=== PATIENT | female | born 1995 | race Caucasian/White ===

== ENCOUNTER 2020-02-29 12:34 | Outpatient (REF) | payer OTHER, SELFPAY | END 2020-02-29 12:35 | disposition home or self-care (01) | LOC: HO.LAB 12:34 | PROVIDERS: Visit Provider Internal Medicine | DX: Z20.828 Contact with and (suspected) exposure to other viral communicable diseases (principal) | CPT/HCPCS: C9803; U0003 ==

== ENCOUNTER 2020-02-29 12:48 | Emergency (ER) | payer OTHER, SELFPAY ==
[2020-02-29 13:05] VITALS: BP 131/66; PULSE 83; RESP 16; TEMP 36.6; O2SAT 100; BMI 29.2
--- NOTE | 2020-02-29 13:30 | ED_ITS ---
HPI - URI/Sore Throat General Chief Complaint: Upper Respiratory Symptoms <ANTONINO Malik Last Filed: 03/01/20 12:58> Stated Complaint: SORE THROAT HEADACHE <ANTONINO Malik Last Filed: 03/01/20 12:58> Time Seen by Provider: 02/29/20 13:29 <ANTONINO Malik Last Filed: 03/01/20 12:58> History of Present Illness HPI Narrative: Patient complains of sore throat for 2 days, there is pain on swallowing but no difficulty swelling no difficulty breathing no fever no chills, no chest pain no shortness of breath no fever or chills <ANTONINO Malik Last Filed: 03/01/20 12:58> Related Data Home Medications: Previous Rx's Medication Instructions Recorded azithromycin [Zithromax Z-Live] See Rx Instructions .ROUTE 02/29/20 .COMPLEX #6 tab <ANTONINO Malik Last Filed: 03/01/20 12:58> Allergies/Adverse Reactions: Allergies Allergy/AdvReac Type Severity Reaction Status Date / Time amoxicillin [AMOXICILLIN] Allergy Unknown RASH Unverified 12/30/19 16:15 <ANTONINO Malik Last Filed: 03/01/20 12:58> Review of Systems Review of Systems: Review of systems is positive for sore throat There is no headache no fever no chills no weakness no confusion no chest pain no shortness of breath no palpitations no nausea no vomiting no diarrhea no abdominal pain no rash <ANTONINO Malik Last Filed: 03/01/20 12:58> Yes all other systems are reviewed and are negative <ANTONINO Malik Last Filed: 03/01/20 12:58> [facility] Past Medical History Source: nursing notes reviewed <ANTONINO Malik Last Filed: 03/01/20 12:58> Medical History: Medical History (Updated 03/01/20 @ 00:00 by Gerri Shepard) Migraines <ANTONNIO Malik Last Filed: 03/01/20 12:58> Social History Social History: Social History Alcohol intake: never Smoked in Last 30 Days: No Use of substances other than those prescribed or required for medical reasons: No Advance Directives: No Advance Directives Information Provided: No <ANTONINO Malik Last Filed: 03/01/20 12:58> Physical Exam Vital Signs: Vital Signs: Last Vital Signs Temp 97.9 F 02/29/20 13:05 Pulse 83 02/29/20 13:05 Resp 16 02/29/20 13:05 BP 131/66 02/29/20 13:05 Pulse Ox 100 02/29/20 13:05 Body Mass Index 29.2 <ANTONINO Malik - Last Filed: 03/01/20 12:58> Vital Signs: Last Vital Signs Temp 97.9 F 02/29/20 13:05 Pulse 83 02/29/20 13:05 Resp 16 02/29/20 13:05 BP 131/66 02/29/20 13:05 Pulse Ox 100 02/29/20 13:05 Body Mass Index 29.2 <Syed Stark MD - Last Filed: 03/01/20 13:15> Patient is A&O x3 comfortable speaking full sentences no acute distress The sinuses are not tender The pharynx has red symmetrically enlarged tonsils with scant exudate The uvula is midline, the mucous membranes are moist, the voice is normal, there is no drooling The neck had some small cervical lymphadenopathy, neck was supple Chest was clear to auscultation bilaterally with full symmetrical equal breath sounds Heart no murmur The abdomen soft nontender Extremities no edema no calf tenderness Neuro no focal deficit Skin no rash <ANTONINO Malik - Last Filed: 03/01/20 12:58> Course Course Course Narrative: Rapid strep was negative but patient has had strep throat many times before and requested an antibiotic so I gave her script for Zithromax and recommended she wait and see if the throat culture is positive <ANTONINO Malik - Last Filed: 03/01/20 12:58> I have reviewed the chart <Syed Stark MD - Last Filed: 03/01/20 13:15> Discharge Plan Discharge Clinical Impression: Pharyngitis <ANTONINO Malik - Last Filed: 03/01/20 12:58> Patient Disposition: Home, Self-Care <ANTONINO Malik - Last Filed: 03/01/20 12:58> Additional Instructions: Rapid strep was negative We will call you a follow-up throat culture is positive You wanted a prescription for antibiotics so I wrote a prescription for Zithromax and you can take it if they call you with a positive result Return any time any worse condition or concerns <ANTONINO Malik - Last Filed: 03/01/20 12:58> Prescriptions: New azithromycin [Zithromax Z-Live] 250 mg tablet See Rx Instructions .ROUTE .COMPLEX Qty: 6 RF: 0 <ANTONINO Malik - Last Filed: 03/01/20 12:58> Interventions: ED Discharge Assessment Last Done: 02/29/20 14:40 <ANTONINO Malik - Last Filed: 03/01/20 12:58> Discharge Date/Time: 02/29/20 14:40 <ANTONINO Malik - Last Filed: 03/01/20 12:58>
--- NOTE | 2020-02-29 14:17 | PC.NURSE ---
throat culture obtained and sent to lab, pt waiting for discharge
== END 2020-02-29 14:40 | disposition home or self-care (01) ==
PROVIDERS: Emergency Provider Emergency Medicine; PCP Pediatrics
DX: J02.9 Acute pharyngitis, unspecified (principal); R51.9 Headache, unspecified; Z79.899 Other long term (current) drug therapy
CPT/HCPCS: 87071; 87147; 87880; 99283; 99284

== ENCOUNTER 2022-07-28 18:36 | Emergency (ER) | payer OTHER, SELFPAY ==
--- NOTE | ~2022-07-28 | XR_ITS ---
EXAMINATION: XR WRIST, RIGHT XR HAND, RIGHT CLINICAL INFORMATION: Redness and pain COMPARISON: Left hand and wrist 10/05/2018 TECHNIQUE: PA, lateral, and oblique views of the right wrist and PA, lateral, and oblique views of the right hand FINDINGS: RIGHT WRIST: The bones and soft tissues are normal. No fracture. Alignment is anatomic. Joint spaces are maintained. No erosions or soft tissue calcifications. RIGHT HAND: The bones and soft tissues are normal. No fracture. Alignment is anatomic. Joint spaces are maintained. No erosions or soft tissue calcifications. XR/XR hand wrist RT IMPRESSION: Normal right hand and wrist.
[2022-07-28 19:15] VITALS: BP 149/94; PULSE 99; RESP 16; TEMP 37.2; O2SAT 97; BMI 30.4
--- NOTE | 2022-07-28 21:34 | ED.EXTPRO ---
HPI - Extremity Problem General Chief complaint: Extremity Problem Stated complaint: scan of hand? feels like no circulation in R hand Time Seen by Provider: 07/28/22 21:20 Source: patient Mode of arrival: ambulatory Limitations: no limitations History of Present Illness HPI Narrative: 27-year-old female who presents emergency department for evaluation of bilateral wrist pain and numbness of her 5th finger. She states she was arrested today after midnight and was placed in handcuffs for approximately 45 minutes. She states that the handcuffs for very tight . She states that while the handcuffs were on her right hand and right 5th finger became numb. After the handcuffs were removed, the numbness of her hand improved but the right 5th finger remain numb. She also developed pain in her right wrist that radiates upper right forearm to the elbow and pain in her left wrist and swelling over both of her hands after being handcuffed. She states she does have a history of carpal tunnel syndrome bilaterally and does get steroid injections Related Data Previous Rx's Medication Instructions Recorded azithromycin 250 mg tablet See Rx Instructions PO .COMPLEX #6 02/29/20 (Zithromax Z-Live) tabs Allergies Allergy/AdvReac Type Severity Reaction Status Date / Time amoxicillin [AMOXICILLIN] Allergy Unknown RASH Unverified 07/28/22 19:15 Review of Systems Review of Systems: Yes all other systems are reviewed and are negative [facility] Past Medical History [facility] Narrative: Past medical history: Asthma. Carpal tunnel syndrome bilateral rests. Social history: She does smoke cigarettes. She occasionally drinks alcohol. Medical History (Updated 07/28/22 @ 21:49 by Alpesh Rand MD) Migraines Social History Social History Alcohol intake: never Advance Directives: No Advance Directives Information Provided: No Physical Exam Vital Signs: Vital Signs: Last Vital Signs Temp 99 F 07/28/22 19:15 Pulse 99 07/28/22 19:15 Resp 16 07/28/22 19:15 BP 149/94 H 07/28/22 19:15 Pulse Ox 97 07/28/22 19:15 O2 Del Method Room Air 07/28/22 19:15 BMI result Body Mass Index 30.4 General: Awake, alert, female patient, very pleasant cooperative, no distress Extremity exam: Right upper extremity: Patient has swelling over the back of her hand with diminished light touch on the right compared to the left, she has diminished sensation over the right 5th finger compared to the left, she can make an okay sign and has good opponents of the right thumb and 5th finger with opponents. Interosseous muscles are intact with normal strength. She does have tenderness with palpation over her ulnar aspect of her forearm. She has full range of motion of her wrist passively but increased pain active movement . She does have a circular abrasion around the wrist consistent with a handcuffed injury. Left upper extremity: Patient has swelling over the back of her hand, she has tenderness with palpation of the wrist, she has full range of motion of the wrist with no pain. There is a circular abrasion noted to the wrist consistent with a handcuff injury. Medical Decision Making Medical Decision Making MDM Narrative: 27-year-old female who presents emergency department for evaluation of bilateral wrist pain, numbness of the right 5th finger, numbness to the back of the right hand and pain along the right forearm which occurred after she was handcuffed for approximately 45 minutes at around midnight the day of evaluation. Patient's examination did reveal circular abrasions to both wrists consistent with handcuff injuries. She does have diminished light touch over the right 5th finger, over the back of the right hand (dorsal aspect), increased pain with active range of motion of the right wrist. She also has pain with palpation of the left wrist. Risks have circular abrasions consistent with handcuff injury. The patient's findings are consistent with bilateral wrist sprains with abrasions and palsy of the right ulnar and radial nerve consistent with compression injury. I did discuss this with the patient . The patient did have x-rays of the right wrist which revealed no acute fracture. The patient was placed in a right wrist splint. She was advised to keep the wrist elevated, apply ice for 10-15 minutes for the next 2 days, take Tylenol and ibuprofen for pain . I did tell her that these palsies will improve over time. Patient was advised follow-up with PCP for re-evaluation. Differential Diagnosis Differential diagnosis includes but is not limited to bilateral wrist fractures, bilateral wrists contusions, bilateral wrist sprains, right ulnar and radial nerve palsies Independent Interpretation I performed an independent interpretation of an: Plain X-Ray (Right wrist) Interpretation: My independent interpretation of the right wrist x-rays is as following: No acute fracture seen Radiology Impression Discussion of test interpretation with radiology: I have reviewed the radiologist's reading. Radiologist Impression: XR hand wrist RT IMPRESSION: Normal right hand and wrist. 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 This will get better over time. Wear the right wrist splint for 1 week. Keep your wrist elevated to help reduce the swelling. The pain in your left wrist is most likely secondary to contusion/bruising from the handcuff. Apply ice for 10-15 minutes 4 to 6 times a day for the next 2 days to help reduce the pain and swelling Take ibuprofen 200 mg pills, 2 pills every 6 hours as needed for pain. Take Tylenol (acetaminophen) 500 mg pills, 2 pills every 6 hours as needed for pain. Follow-up with your doctor in 2 days. Please return to the emergency department if your symptoms get worse or if you develop any symptoms that are concerning to you. Prescriptions: No Action azithromycin [Zithromax Z-Live] 250 mg tablet See Rx Instructions .ROUTE .COMPLEX Qty: 6 0RF Rx Instructions: take 500 mg today (day 1), then 250 mg for 4 days (days 2-5) Interventions: ED Discharge Assessment Last Done: 07/28/22 21:40 Discharge Date/Time: 07/28/22 21:41
== END 2022-07-28 21:41 | disposition home or self-care (01) ==
PROVIDERS: Emergency Provider Emergency Medicine Emergency Medical Services; PCP Pediatrics
DX: S60.211A Contusion of right wrist, initial encounter (principal); S60.212A Contusion of left wrist, initial encounter; G56.31 Lesion of radial nerve, right upper limb; G56.21 Lesion of ulnar nerve, right upper limb; Y29.XXXA Contact with blunt object, undetermined intent, initial encounter; Y93.9 Activity, unspecified; Y92.9 Unspecified place or not applicable; Y99.9 Unspecified external cause status
CPT/HCPCS: 29125; 73110; 73130; 99282; 99284

== ENCOUNTER 2023-06-03 18:56 | Emergency (ER) | payer OTHER, SELFPAY ==
--- NOTE | ~2023-06-03 | XR_ITS ---
EXAMINATION: X-RAY RIGHT ANKLE AND RIGHT FOOT CLINICAL INFORMATION: Pain, fall. COMPARISON: None available. TECHNIQUE: 2 views of the right ankle and 3 views of the right foot. FINDINGS: Comminuted mildly displaced fracture at the base of the distal phalanx of the first toe with intra-articular extension. Surrounding soft tissue swelling. No additional fractures in the right ankle in the right foot. No unexpected radiopaque foreign bodies. XR/XR ankle RT min 3V IMPRESSION: Comminuted mildly displaced fracture at the base of the distal phalanx of the first toe with intra-articular extension.
--- NOTE | ~2023-06-03 | XR_ITS ---
EXAMINATION: X-RAY RIGHT ANKLE AND RIGHT FOOT CLINICAL INFORMATION: Pain, fall. COMPARISON: None available. TECHNIQUE: 2 views of the right ankle and 3 views of the right foot. FINDINGS: Comminuted mildly displaced fracture at the base of the distal phalanx of the first toe with intra-articular extension. Surrounding soft tissue swelling. No additional fractures in the right ankle in the right foot. No unexpected radiopaque foreign bodies. XR/XR foot RT min 3V IMPRESSION: Comminuted mildly displaced fracture at the base of the distal phalanx of the first toe with intra-articular extension.
[2023-06-03 19:44] VITALS: BP 146/91; PULSE 85; RESP 18; TEMP 36.6; O2SAT 100; BMI 30.8
--- NOTE | 2023-06-03 19:50 | ED_ITS ---
HPI - Extremity Problem General Chief complaint: Extremity Injury, Upper Stated complaint: Rt big toe pain Time Seen by Provider: 06/03/23 23:39 Source: patient Mode of arrival: ambulatory Limitations: no limitations History of Present Illness HPI Narrative: Patient is a 28-year-old female who presents emergency department for evaluation of pain to the right great toe. Reports that she was walking down the stairs when she tripped resulting in the toe ?bending awkwardly?. She developed sudden pain that radiated throughout her foot and up to the ankle. Pain is made worse while weight-bearing. Denies any numbness tingling or cold sensation Related Data Previous Rx's Medication Instructions Recorded azithromycin 250 mg tablet See Rx Instructions PO .COMPLEX #6 02/29/20 (Zithromax Z-Live) tabs Allergies Allergy/AdvReac Type Severity Reaction Status Date / Time amoxicillin [AMOXICILLIN] Allergy Unknown RASH Unverified 07/28/22 19:15 Review of Systems Review of Systems: Yes all other systems are reviewed and are negative [facility] Past Medical History Attestation statement: The following information was validated with the patient. Source: old records reviewed Medical History Migraines Social History Social History Alcohol intake: never Advance Directives: No Advance Directives Information Provided: No Physical Exam Vital Signs: Vital Signs: Last Vital Signs Temp 98.2 F 06/04/23 00:15 Pulse 88 06/04/23 00:15 Resp 18 06/04/23 00:15 BP 137/86 06/04/23 00:15 Pulse Ox 100 06/04/23 00:15 O2 Del Method Room Air 06/04/23 00:15 BMI result Body Mass Index 30.8 Appearance: Alert.?Oriented to person, place and time. No acute distress.?Normal affect. Neck: Normal inspection.? Neck supple.?? CVS: Heart sounds normal. Normal heart rate and rhythm.? Pulses normal.?? Respiratory: No respiratory distress.? Lung sounds clear to auscultation bilaterally?? Skin: Skin warm and dry.? Normal skin color.? Extremities: No deformity to the right ankle or midfoot. Right great toe mild localized swelling, early ecchymosis. No subungual hematoma. No obvious deformity.? No calf ttp? Neuro: Moves all extremities spontaneously. Sensation intact bilaterally. Ambulates with antalgic gait Course Course Course Narrative: 28 yold female presents to the ED for right ankle/foot pain after tripping down stairs. patient denies hitting head or body hitting ground. patient twisted ankle and foot on stairs. Xrays ordered Medications Administered Discontinued Medications Generic Name Dose Route Start Last Admin Trade Name Scott PRN Reason Stop Dose Admin Acetaminophen 975 mg 06/03/23 19:49 06/03/23 19:53 Acetaminophen 325 Mg Tablet PO 06/03/23 19:50 975 mg ONCE ONE Administration Medical Decision Making Medical Decision Making MDM Narrative: Patient is a 28-year-old female who presents emergency department for evaluation of traumatic right great toe pain radiating to the foot/ankle. History and physical examination concerning for fracture, dislocation, contusion. XR imaging was obtained which does reveal comminuted minimally displaced distal phalanx fracture of the great toe. Neurovascularly intact distally. Patient was made aware of this. Digit was alonzo-taped to the 2nd digit and she was placed in a postoperative shoe and tolerated this well. Advised rest, ice, elevation, acetaminophen/ibuprofen, outpatient follow-up with orthopedics. Discussed worrisome signs and symptoms that would warrant re-evaluation in the emergency department. All questions answered. Stable for discharge. Differential Diagnosis Differential Diagnoses: The differential diagnosis associated with the presentation includes (See narrative above) Independent Interpretation I performed an independent interpretation of an: Plain X-Ray (Right distal phalanx fracture of the great toe) Radiology Impression Discussion of test interpretation with radiology: I have reviewed the radiologist's reading. Radiologist Impression: XR/XR ankle RT min 3V IMPRESSION: Comminuted mildly displaced fracture at the base of the distal phalanx of the first toe with intra-articular extension. Independent Historian Clinical information obtained from an independent historian. History obtained from or confirmed by: Parent (Present who confirms history) Prescription Management I considered prescription management with: Pain Medication Discharge Plan Discharge Clinical Impression: Fractured great toe Qualifiers: Encounter type: initial encounter Fracture type: closed Phalanx: distal Laterality: right Patient Disposition: Home, Self-Care Instructions: Toe Fracture (ED), Post Surgical Shoe (ED) Additional Instructions: A piece of cotton should remain in place between the 2 toes while taped together for stability. This will prevent any skin breakdown and moisture buildup. Wear the shoe provided to avoid placing weight on the toe while walking. Contact the orthopedic office to arrange for a follow-up visit. You can take ibuprofen 200 mg, 3 tablets (600mg) every 6-8 hours as needed for pain, in addition to Tylenol 500 mg, 2 tablets (1,000mg) every 4-6 hours as needed for pain, but not to exceed 3 doses daily (3,000mg).? Prescriptions: No Action azithromycin [Zithromax Z-Live] 250 mg tablet See Rx Instructions .ROUTE .COMPLEX Qty: 6 0RF Rx Instructions: take 500 mg today (day 1), then 250 mg for 4 days (days 2-5) Referrals: Raeann Alejo DO [Primary Care Provider] - Shaylee Mcgowan PA-C [[facility]] - Stand Alone Forms: Work/School Release Discharge Date/Time: 06/04/23 00:20
[2023-06-03] MEDS: Acetaminophen 325 MG TABLET 975 MG PO (19:53)
[2023-06-04 00:15] VITALS: BP 137/86; PULSE 88; RESP 18; TEMP 36.8; O2SAT 100
== END 2023-06-04 00:20 | disposition home or self-care (01) ==
PROVIDERS: Emergency Provider Emergency Medicine; PCP Pediatrics
DX: S92.421A Displaced fracture of distal phalanx of right great toe, initial encounter for closed fracture (principal); M79.674 Pain in right toe(s); M25.571 Pain in right ankle and joints of right foot; W10.9XXA Fall (on) (from) unspecified stairs and steps, initial encounter; Y93.9 Activity, unspecified; Y92.9 Unspecified place or not applicable; Y99.8 Other external cause status
CPT/HCPCS: 73610; 73630; 99283